=== PATIENT | male | born 1940 | race Two or more races ===

== ENCOUNTER 2016-05-04 08:59 | Emergency (ER) | payer OTHER, MEDICARE, MEDICAID ==
--- NOTE | 2016-05-04 09:51 | RAD ---
History: Fever with cough for 2 weeks. Comparison: 12/23/2012. Technique: 2 views Findings: Multilevel thoracic degenerative changes are identified. The heart size is borderline prominent though stable from the appearance on prior exam. There is suggested increased density projecting within the lingula, over the heart on the lateral view. Increased density along the lateral portion of the right hemithorax likely reflects overlying soft tissue. The hilar and mediastinal structures are intact. Impression: 1. Findings suggestive of a lingular infiltrate. 2. Stable borderline cardiac size.
[2016-05-04] MEDS ORDERED: DOXYCYCLINE HYCLATE 100 MG TABLET ONE (10:17)
== END 2016-05-04 10:35 | disposition home or self-care (01) ==
LOC: ED 08:59
DX: J18.9 Pneumonia, unspecified organism (principal); I25.2 Old myocardial infarction; I10 Essential (primary) hypertension
CPT/HCPCS: 71020; 87804; 99283 ×2; A9270